=== PATIENT | male | born 1965 | race Caucasian/White ===

== ENCOUNTER 2022-05-20 08:33 | Day surgery (SDC) | payer MEDICAID ==
[~2022-05-20] VITALS: Ht 172.7 cm; Wt 81.6 kg
[2022-05-20] MEDS ORDERED: MEPERIDINE 50 MG/ML VIAL ONE (10:55)
[2022-05-20] MEDS ORDERED: SIMETHICONE 40 MG/0.6 ML ML ONE (10:55)
[2022-05-20] MEDS ORDERED: MIDAZOLAM HCL 5 MG/5 ML VIAL ONE (10:55)
[2022-05-20 14:49] VITALS: BP_SYST 106
== END 2022-05-20 12:25 | disposition home or self-care (01) ==
LOC: SDS 08:33 → SMU 08:38 → SDS 12:25
PROVIDERS: ATTEND Internal Medicine Gastroenterology
DX: R19.4 Change in bowel habit (principal); K57.30 Diverticulosis of large intestine without perforation or abscess without bleeding; K64.8 Other hemorrhoids; K62.5 Hemorrhage of anus and rectum; Z88.1 Allergy status to other antibiotic agents; Z79.899 Other long term (current) drug therapy; Z20.822 Contact with and (suspected) exposure to COVID-19
CPT/HCPCS: 45378; 87426; 36415; 99152; G0378; J2250; J2175